=== PATIENT | male | born 1965 | race African-American/Black ===

== ENCOUNTER 2019-03-23 07:45 | Outpatient (CLI) | payer BC ==
--- NOTE | 2019-03-23 08:21 | XRay Report ---
RIGHT SHOULDER, 3 VIEWS: HISTORY: right shoulder pain. Normal bone mineralization. No acute osseous injury or joint pathology is detected. The soft tissues are unremarkable. IMPRESSION: Right shoulder within normal limits.
== END 2019-03-23 07:46 | disposition home or self-care (01) ==
LOC: XRAY 07:45
PROVIDERS: ATTEND Internal Medicine
DX: M25.511 Pain in right shoulder (principal)

== ENCOUNTER 2019-07-17 09:13 | Outpatient (CLI) | payer BC ==
--- NOTE | 2019-07-17 11:38 | Magnetic Resonance Report ---
MR UE joint RT wo con INDICATION / CLINICAL INFORMATION: M25.511) PAIN IN RIGHT SHOULDER. TECHNIQUE: Multiplanar, multisequence MR images were obtained. COMPARISON: Right shoulder radiographs 03/23/2019. FINDINGS: There is mild acromioclavicular degenerative change which results in mild encroachment. There is trac e fluid in the subdeltoid/subacromial space. Rotator cuff tendons are intact. There is mild supraspinatus tendinosis. No rotator cuff muscle edema or atrophy is seen. There is mild tendinosis within the intra-articular portion of the long head biceps tendon. No acute labral tear is seen. There is no para labral cyst. Inferior glenohumeral ligaments are mildly thickened. There is no joint effusion. There is mild carti denzel thinning. No full-thickness cartilage defects are seen. Bone marrow signal is unremarkable. IMPRESSION: 1. No rotator cuff tendon tear is seen. There is mild supraspinatus tendinosis. 2. There is mild thickening of the inferior glenohumeral ligaments/joint capsule. This could be seen in the setting of adhesive capsulitis, correlate clinically. 3. Mild tendinosis of the intra-articular portion of the long head biceps tendon. 4. Trace subdeltoid/subacromial bursitis. Signer Name: Hernan Ro MD Signed: 07/17/2019 11:34 AM Workstation Name: [id number]
== END 2019-07-17 09:14 | disposition home or self-care (01) ==
LOC: MRI 09:13
PROVIDERS: ATTEND Orthopaedic Surgery
DX: M25.511 Pain in right shoulder (principal)

== ENCOUNTER 2020-08-09 12:39 | Emergency (ER) | payer BC ==
--- NOTE | 2020-08-09 13:37 | Event Note ---
ED Screening Note Date of service: 08/09/20 Time: 13:36 ED Screening Note: Patient complains of shortness of breath and was diagnosed with Covid yesterday States symptoms started on 08/07/2029 History of diabetes This initial assessment/diagnostic orders/clinical plan/treatment(s) is/are subject to change based on patients health status, clinical progression and re- assessment by fellow clinical providers in the ED. Further treatment and workup at subsequent clinical providers discretion. Patient/guardian urged not to elope from the ED as their condition may be serious if not clinically assessed and managed. Initial orders include: CXR labs
--- NOTE | 2020-08-09 14:26 | XRay Report ---
CHEST 2 VIEWS INDICATION / CLINICAL INFORMATION: shortness of breath, +Covid. COMPARISON: 07/30/2016 FINDINGS: SUPPORT DEVICES: None. HEART / MEDIASTINUM: No significant abnormality. LUNGS / PLEURA: Small left upper lobe pulmonary nodule No significant pulmonary or pleural abnormalit y. No pneumothorax. ADDITIONAL FINDINGS: No significant additional findings. IMPRESSION: 1. Left upper lobe pulmonary nodule. Recommend follow-up chest CT. There is questionable calcificatio n Signer Name: Santo Evans MD Signed: 08/09/2020 2:21 PM Workstation Name: [id number]
[2020-08-09 14:47] LABS: Basophils % (Auto) 0.5 % (0.0-1.8); Eosinophils % (Auto) 0.5 % (0.0-4.3); Lymphocytes % (Auto) 25.3 % (13.4-35.0); Mean Corpuscular HGB Conc 33 % (32-34); Mean Corpuscular Volume 81 fl (84-94); Monocytes # (Auto) 0.5 K/mm3 (0.0-0.8); Monocytes % (Auto) 13.8 % (0.0-7.3); Platelet Count 232 K/mm3 (140-440); Red Blood Count 5.55 M/mm3 (3.65-5.03); Red Cell Distribution Width 13.6 % (13.2-15.2)
[2020-08-09 15:05] LABS: Alanine Aminotransferase 27 units/L (7-56); Albumin 4.4 g/dL (3.9-5); Blood Urea Nitrogen 10 mg/dL (9-20); Calcium 9.5 mg/dL (8.4-10.2); Hemolysis Index 9
[2020-08-09 15:06] LABS: BUN/Creatinine Ratio 14
--- NOTE | 2020-08-09 15:31 | Emergency Department Report ---
Minor Respiratory - HPI Chief Complaint: Upper Respiratory Infection Stated Complaint: COVID + Time Seen by Provider: 08/09/20 13:34 Duration: 2 Days Minor Respiratory: Yes Ear Pain, Yes Cough, Yes Shortness of Breath, No Rhinorrhea, No Sore Throat, No Able to Tolerate Fluids, No Sick Contacts, No Hemoptysis, No Chest Pain, No Fever Other History: The patient was evaluated in the emergency department for symptoms described in the history of present illness. He/she was evaluated in the context of the global COVID-19 pandemic, which necessitated consideration that the patient might be at risk for infection with the virus that causes COVID-19. Institutional protocols and algorithms that pertain to the evaluation of patients at risk for COVID-19 are in a state of rapid change based on in formation released by regulatory bodies including the CDC and federal and state organizations. These policies and algorithms were followed during the patient's care in the emergency department. Please note that these policies, procedures and recommendations changed on a rapid basis. 54-year-old male reports that he tested positive for COVID-19 on 08/07/2020. Patient presents to the ER complaining of shortness of breath and cough with a slight sore throat. He also admits to right ear and left ear itching for about 10 days. Patient states lying down makes his short of breath as well as taking cough medication has made his short of breath. Patient denies any history of TB. [place] this [place]. He denies any fever chills no nausea no vomiting no headache. ED Review of Systems ROS: Stated complaint: COVID + Other details as noted in HPI Comment: All other systems reviewed and negative ED Past Medical Hx - Past Medical History Previous Medical History?: Yes Hx Diabetes: Yes Hx Arthritis: Yes - Social History Smoking Status: Never Smoker Substance Use Type: None - Medications Home Medications: Home Medications Medication Instructions Recorded Confirmed Last Taken Type Azithromycin [Zithromax Z-MAKSIM] 250 mg PO DAILY #6 tab 08/09/20 Unknown Rx Benzonatate [Tessalon Perles] 100 mg PO Q8HR #15 capsule 08/09/20 Unknown Rx Minor Respiratory Exam - Exam General: Vital signs noted. No distress. Alert and acting appropriately. HEENT: Yes Moist Mucous Membranes, No Pharyngeal Erythema, No Pharyngeal Exudates, No Rhinorrhea, No Conjuctival Injection, No Frontal Tenderness, No Maxillary Tenderness Ear: Neither TM Bulge, Neither TM Erythema, Neither EAC Pain, Neither EAC Discharge (Right ear cerumen impaction) Neck: Yes Supple, No Adenopathy Lungs: Yes Good Air Exchange, No Wheezes, No Ronchi, No Stridor, No Cough, No Labored Respirations, No Retractions, No Use of Accessory Muscles, No Other Abnormal Lung Sounds Heart: Yes Regular, No Murmur Abdomen: Yes Normal Bowel Sounds, No Tenderness, No Peritoneal Signs Skin: No Rash, No Edema Neurologic: Alert and oriented, no deficits. Musculoskeletal: Unremarkable. ED Course Vital Signs 08/09/20 13:19 Temperature 98.1 F Pulse Rate 94 H Respiratory 18 Rate Blood Pressure 138/75 [Right] O2 Sat by Pulse 99 Oximetry ED Medical Decision Making - Lab Data Result diagrams: 08/09/20 14:26 08/09/20 14:26 - Radiology Data Radiology results: report reviewed Patient: EITAN ALICEA MR#: [id number] : 1965 Acct:[id number] Age/Sex: 54 / M ADM Date: 08/09/20 Loc: ED Attending Dr: Ordering Physician: DARLEEN CAO Date of Service: 08/09/20 Procedure(s): XR chest routine 2V Accession Number(s): [id number] cc: DARLEEN CAO Fluoro Time In Minutes: CHEST 2 VIEWS INDICATION / CLINICAL INFORMATION: shortness of breath, +Covid. COMPARISON: 07/30/2016 FINDINGS: SUPPORT DEVICES: None. HEART / MEDIASTINUM: No significant abnormality. LUNGS / PLEURA: Small left upper lobe pulmonary nodule No significant pulmonary or pleural abnormality. No pneumothorax. ADDITIONAL FINDINGS: No significant additional findings. IMPRESSION: 1. Left upper lobe pulmonary nodule. Recommend follow-up chest CT. There is questionable calcification Signer Name: Santo Evans MD Signed: 08/09/2020 2:21 PM Workstation Name: [id number] Transcribed By: TL Dictated By: Santo Evans MD Electronically Authenticated By: Santo Evans MD Signed Date/Time: 08/09/20 1421 DD/ 1420 TD/TT: [place] [address] Cat Scan Report Signed Patient: EITAN ALICEA MR#: [id number] : 1965 Acct:[id number] Age/Sex: 54 / M ADM Date: 08/09/20 Loc: ED Attending Dr: Ordering Physician: SARIKA HIRSCH Date of Service: 08/09/20 Procedure(s): CT chest w con Accession Number(s): [id number] cc: SARIKA HIRSCH CT CHEST WITH CONTRAST INDICATION / CLINICAL INFORMATION: Left upper lobe nodule. TECHNIQUE: Axial CT images were obtained through the chest after 100 cc IV contrast. All CT scans at this location are performed using CT dose reduction for ALARA by means of automated exposure control. COMPARISON: Chest x-ray earlier today FINDINGS: Limited secondary to mild respiratory motion artifact HEART: No significant abnormality. THORACIC AORTA: No significant abnormality. MEDIASTINUM and EMANUEL: No significant abnormality. LUNGS: 2 adjacent left apical solid pulmonary nodules measuring 7 and 6 mm series 2 image 22 corresponds to the radiographic pulmonary nodule seen on chest x-ray. PLEURA: No significant pleural effusion. No pneumothorax. ADDITIONAL FINDINGS: None. UPPER ABDOMEN: Hepatomegaly and moderate steatosis SKELETAL SYSTEM: No significant abnormality. IMPRESSION: 1. 2 left apical incidental pulmonary nodules measuring up to 7 mm 2. Moderate hepatic steatosis INCIDENTAL PULMONARY NODULE RECOMMENDATION RECOMMENDATION: Solid Nodule size 6-8 mm -- Multiple - Low Risk Patient: CT at 3-6 months, then consider CT at 18-24 months - High Risk Patient: CT at 3-6 months, then CT at 18-24 month Note These recommendations do not apply to lung cancer screening, patients with immunosuppression, or patients with known primary cancer. Note Newly detected indeterminate nodule in persons 35 years of age or older. Persons under the age of 35 should not receive follow-up unless there is a known primary cancer. Note A Perifissural Nodule is a fissure-attached/subpleural, homogeneous, solid nodule that had smooth margins and an oval, lentiform, or triangular shape. They represent about 20% of nodules detected in lung cancer screening, are invariably benign, and do not require follow-up. Nodules 10 mm or larger (or those with suspicious features) will continue to be managed based on the size criteria. Low Risk Patient -- minimal or absent history of smoking and of other known risk factors. High Risk Patient -- history of smoking or of other known risk factors. Nodule dimensions are average of long and short axes, rounded to the nearest millimeter. Based on 2017 Fleischner Society Guidelines found in Radiology 2017 284:228-243. https://doi.org/10.1148/radiol.8767764022 https://www.ncbi.nlm.nih.gov/pmc/articles/PQY3924412/ Signer Name: Santo Evans MD Signed: 08/09/2020 6:06 PM Workstation Name: [id number] Transcribed By: TL Dictated By: Santo Evans MD Electronically Authenticated By: Santo Evans MD Signed Date/Time: 08/09/201805 DD/ 02 TD/TT: - Medical Decision Making 54-year-old male reports that he tested positive for COVID-19 on 08/07/2020. Patient presents to the ER complaining of shortness of breath and cough with a slight sore throat. He also admits to right ear and left ear itching for about 10 days. Patient states lying down makes his short of breath as well as taking cough medication has made his short of breath. Patient denies any history of TB. Is been in this country since 2004. He denies any fever chills no nausea no vomiting no headache. Chest x-ray concern for left upper lobe nodule will order a CT with contrast. Pato kang has had basic labs which are stable. Patient will be placed on azithromycin and Tessalon Perles. Critical care attestation.: If time is entered above; I have spent that time in minutes in the direct care of this critically ill patient, excluding procedure time. ED Disposition Clinical Impression: Shortness of breath with exposure to COVID-19 virus, Pulmonary nodule/lesion, solitary Disposition: -01 TO HOME OR SELFCARE Is pt being admited?: No Does the pt Need Aspirin: No Condition: Stable Instructions: Shortness of Breath, Adult, [id number], Pulmonary Nodule Additional Instructions: CT scan shows you have 2 pulmonary nodules on the left side. I highly recommend for you to follow-up with income tax manager as well as a repeat CT scan in 3 months. I have referred you to a income tax manager listed below. Please complete the azithromycin take your Tessalon Perles for cough. And quarantine for the next 14 days. Increase your fluid intake. Return to the emergency room if you start to have worsening shortness of breath. Prescriptions: Benzonatate [Tessalon Perles] 100 mg PO Q8HR #15 capsule Azithromycin [Zithromax Z-MAKSIM] 250 mg PO DAILY #6 tab Referrals: DEBBIE KUMAR MD [Primary Care Provider] - 3-5 Days LIA HARRIS MD [Staff Physician] - 3-5 Days Forms: Work/School Release Form(ED)
--- NOTE | 2020-08-09 18:11 | Cat Scan Report ---
CT CHEST WITH CONTRAST INDICATION / CLINICAL INFORMATION: Left upper lobe nodule. TECHNIQUE: Axial CT images were obtained through the chest after 100 cc IV contrast. All CT scans at this locati on are performed using CT dose reduction for ALARA by means of automated exposure control. COMPARISON: Chest x-ray earlier today FINDINGS: Limited secondary to mild respiratory motion artifact HEART: No significant abnormality. THORACIC AORTA: No significant abnormality. MEDIASTINUM and EMANUEL: No significant abnormality. LUNGS: 2 adjacent left apical solid pulmonary nodules measuring 7 and 6 mm series 2 image 22 correspo nds to the radiographic pulmonary nodule seen on chest x-ray. PLEURA: No significant pleural effusion. No pneumothorax. ADDITIONAL FINDINGS: None. UPPER ABDOMEN: Hepatomegaly and moderate steatosis SKELETAL SYSTEM: No significant abnormality. IMPRESSION: 1. 2 left apical incidental pulmonary nodules measuring up to 7 mm 2. Moderate hepatic steatosis INCIDENTAL PULMONARY NODULE RECOMMENDATION RECOMMENDATION: Solid Nodule size 6-8 mm -- Multiple - Low Risk Patient: CT at 3-6 months, then consider CT at 18-24 months - High Risk Patient: CT at 3-6 months, then CT at 18-24 month Note These recommendations do not apply to lung cancer screening, patients with immunosuppression, o r patients with known primary cancer. Note Newly detected indeterminate nodule in persons 35 years of age or older. Persons under the age of 35 should not receive follow-up unless there is a known primary cancer. Note A Perifissural Nodule is a fissure-attached/subpleural, homogeneous, solid nodule that had smoo th margins and an oval, lentiform, or triangular shape. They represent about 20% of nodules detected in lung cancer screening, are invariably benign, and do not require follow-up. Nodules 10 mm or large r (or those with suspicious features) will continue to be managed based on the size criteria. Low Risk Patient -- minimal or absent history of smoking and of other known risk factors. High Risk Patient -- history of smoking or of other known risk factors. Nodule dimensions are average of long and short axes, rounded to the nearest millimeter. Based on 2017 Fleischner Society Guidelines found in Radiology 2017 284:228-243. https://doi.org/10.1148/radiol.4681796667 https://www.ncbi.nlm.nih.gov/pmc/articles/VVR2068279/ Signer Name: Santo Evans MD Signed: 08/09/2020 6:06 PM Workstation Name: [id number]
[2020-08-09 19:47] VITALS: BP 130/78
== END 2020-08-09 19:27 | disposition home or self-care (01) ==
LOC: ED 12:39
DX: U07.1 COVID-19 (principal); R06.02 Shortness of breath; R91.1 Solitary pulmonary nodule; E11.9 Type 2 diabetes mellitus without complications; M13.88 Other specified arthritis, other site
CPT/HCPCS: 36415; 71046; 71260; 80053; 85025; 99284; Q9967

== ENCOUNTER 2021-03-01 08:06 | Outpatient (CLI) | payer BC ==
[2021-03-01 09:16] LABS: Basophils # (Auto) 0.1 K/mm3 (0.0-0.1); Basophils % (Auto) 1.1 % (0.0-1.8); Eosinophils # (Auto) 0.1 K/mm3 (0.0-0.4); Eosinophils % (Auto) 2.5 % (0.0-4.3); Hemoglobin 14.4 gm/dl (11.8-15.2); Lymphocytes # (Auto) 2.1 K/mm3 (1.2-5.4); Lymphocytes % (Auto) 37.3 % (13.4-35.0); Mean Corpuscular HGB Conc 34 % (32-34); Mean Corpuscular Volume 82 fl (84-94); Monocytes # (Auto) 0.4 K/mm3 (0.0-0.8); Platelet Count 261 K/mm3 (140-440); Red Blood Count 5.15 M/mm3 (3.65-5.03); Red Cell Distribution Width 12.9 % (13.2-15.2)
[2021-03-01 09:18] LABS: Alanine Aminotransferase 20 units/L (7-56); Albumin 4.4 g/dL (3.9-5); Blood Urea Nitrogen 12 mg/dL (9-20); Calcium 8.7 mg/dL (8.4-10.2); Chol/HDL Ratio 4.31 %; HDL Cholesterol 35 mg/dL (40-59); Hemolysis Index 16; LDL Cholesterol,Direct 105 mg/dL (50-130)
[2021-03-01 09:20] LABS: BUN/Creatinine Ratio 20
== END 2021-03-01 08:07 | disposition home or self-care (01) ==
LOC: LAB 08:06
PROVIDERS: ATTEND Internal Medicine
DX: Z00.00 Encounter for general adult medical examination without abnormal findings (principal); R53.83 Other fatigue; E78.2 Mixed hyperlipidemia; N40.1 Benign prostatic hyperplasia with lower urinary tract symptoms; E11.65 Type 2 diabetes mellitus with hyperglycemia; R73.09 Other abnormal glucose
CPT/HCPCS: 36415; 80053; 80061; 83036; 84443; 85025

== ENCOUNTER 2021-03-07 09:43 | Outpatient (CLI) | payer BC ==
--- NOTE | 2021-03-07 11:54 | Cat Scan Report ---
CT CHEST WITH AND WITHOUT CONTRAST INDICATION / CLINICAL INFORMATION: Solitary pulmonary nodule. TECHNIQUE: Axial CT images were obtained through the chest before and after 100 cc IV contrast. Sagittal and cor onal reformatted images. All CT scans at this location are performed using CT dose reduction for ALAR A by means of automated exposure control. COMPARISON: 08/09/2020 FINDINGS: HEART: No significant abnormality. THORACIC AORTA: No significant abnormality. MEDIASTINUM and EMANUEL: No significant abnormality. LUNGS: The previously described adjacent pulmonary nodules at the left apex measuring 7 mm and 6 mm a re unchanged since 08/09/2020. No new pulmonary nodule is appreciated. There is poor inspiration. No e vidence for infiltrate or interstitial lung disease PLEURA: No significant pleural effusion. No pneumothorax. SKELETAL SYSTEM: No significant abnormality. UPPER ABDOMEN: Hepatic steatosis is unchanged. ADDITIONAL FINDINGS: None. IMPRESSION: No change since 08/09/2020 exam. Consider follow-up in one year. Signer Name: Mickey Chou Jr, MD Signed: 03/07/2021 11:50 AM Workstation Name: [id number]
== END 2021-03-07 09:44 | disposition home or self-care (01) ==
LOC: CT 09:43
PROVIDERS: ATTEND Internal Medicine
DX: R91.1 Solitary pulmonary nodule (principal); K76.0 Fatty (change of) liver, not elsewhere classified
CPT/HCPCS: 71270; Q9967

== ENCOUNTER 2021-11-06 12:49 | Outpatient (CLI) | payer BC ==
[2021-11-06 13:29] LABS: Hematocrit 43.6 % (35.5-45.6); Hemoglobin 14.3 gm/dl (11.8-15.2); Mean Corpuscular HGB Conc 33 % (32-34); Mean Corpuscular Volume 81 fl (84-94); Platelet Count 268 K/mm3 (140-440); Red Blood Count 5.41 M/mm3 (3.65-5.03)
[2021-11-06 14:16] LABS: Alanine Aminotransferase 20 units/L (7-56); Albumin 4.6 g/dL (3.9-5); Blood Urea Nitrogen 10 mg/dL (9-20); Calcium 10.1 mg/dL (8.4-10.2); Chol/HDL Ratio 4.85 %; HDL Cholesterol 34 mg/dL (40-59); Hemolysis Index 7; LDL Cholesterol,Direct 102 mg/dL (50-130)
[2021-11-06 14:25] LABS: BUN/Creatinine Ratio 17
== END 2021-11-06 12:50 | disposition home or self-care (01) ==
LOC: LAB 12:49
PROVIDERS: ATTEND Internal Medicine
DX: Z00.00 Encounter for general adult medical examination without abnormal findings (principal); N40.0 Benign prostatic hyperplasia without lower urinary tract symptoms; E78.2 Mixed hyperlipidemia; E11.65 Type 2 diabetes mellitus with hyperglycemia; R53.83 Other fatigue
CPT/HCPCS: 36415; 80053; 80061; 83036; 84153; 84443; 85027

== ENCOUNTER 2022-03-18 12:22 | Outpatient (CLI) | payer BC ==
[2022-03-18 13:12] LABS: Alanine Aminotransferase 16 units/L (7-56); Albumin 4.6 g/dL (3.9-5); Blood Urea Nitrogen 12 mg/dL (9-20); Calcium 9.2 mg/dL (8.4-10.2); Hemolysis Index 18
[2022-03-18 13:17] LABS: BUN/Creatinine Ratio 17
== END 2022-03-18 12:23 | disposition home or self-care (01) ==
LOC: LAB 12:22
PROVIDERS: ATTEND Internal Medicine
DX: N39.0 Urinary tract infection, site not specified (principal); E11.65 Type 2 diabetes mellitus with hyperglycemia
CPT/HCPCS: 36415; 80053; 83036; 87086